=== PATIENT | male | born 1960 | race Caucasian/White ===

== ENCOUNTER → 2016-03-04 | Outpatient (REF) ==
--- NOTE | 2016-03-04 11:56 | REP ---
Clinical: Pain and disability. Technique: AP, lateral, open mouth views. Findings: Moderate to advanced degenerative disc osteophyte complex noted at the C5-6 and C6-7 levels. Alignment and lordosis maintained. No acute fracture / compression injury or subluxation. Impression: Focal degenerative disc osteophyte complex at the C5-6 and C6-7 levels. Signed by Pollo Murillo MD 03/04/2016 11:48 A
== END | disposition home or self-care (01) ==
LOC: M SMT 11:28
PROVIDERS: ATTEND Internal Medicine
DX: Z02.71 Encounter for disability determination (principal)

== ENCOUNTER → 2016-04-21 | Outpatient (CLI) | payer MEDICARE ==
--- NOTE | 2016-04-22 08:50 | REP ---
MRI CERVICAL SPINE WITHOUT CONTRAST: HISTORY: Headaches. COMPARISON: 10/11/2010. A small central disc protrusion is present at the C3-4 level. There is mild effacement of the thecal sac without spinal cord compression. The C3 neural foramina are patent. A disc bulge is present at the C4-5 level. There is minimal effacement of the thecal sac without spinal cord compression. The C4 neural foramina are patent. A disc bulge with associated osteophyte formation is present at the C5-6 level. There is moderate effacement of the thecal sac without spinal cord compression. Bilateral uncinate process hypertrophy is present. This produces minimal and mild narrowing of the right and left C5 neural foramina respectively. A disc bulge with associated osteophyte formation is present at the C6-7 level. There is moderate effacement of the thecal sac without spinal cord compression. Bilateral uncinate process hypertrophy is present. This produces minimal and mild narrowing of the right and left C6 neural foramina respectively. There is no other disc bulge or herniation. The remaining neural foramina are patent. The spinal cord is normal in signal intensity. There is no intradural extramedullary lesion. The C5-6 and C6-7 intervertebral discs are decreased in height consistent with disc degeneration. Normal signal intensity is present in the cervical vertebral bodies. IMPRESSION: There is cervical spondylosis at the C3-4 through C6-7 levels without spinal cord compression. The disc bulge at the C4-5 level and foraminal narrowing at the C5-6 level are new findings. Signed by Wan Yost MD 04/22/2016 09:00 A
== END ==
LOC: M RAD 16:55
PROVIDERS: ATTEND Family Medicine
DX: M47.812 Spondylosis without myelopathy or radiculopathy, cervical region (principal); M50.20 Other cervical disc displacement, unspecified cervical region

== ENCOUNTER 2017-10-27 09:54 | Emergency (ER) | payer MEDICARE ==
[2017-10-27 11:18] LABS: BASO % 0.6 % (0.0-1.0); EOS # 0.1 10^3/uL (0.0-0.50); EOS % 1.2 % (0.0-3.0); HEMATOCRIT 42.9 % (42.0-52.0); HEMOGLOBIN 15.8 g/dl (13.5-17.5); IMMATURE GRANULOCYTE % 0.2 % (0-3.0); LYMPH # 1.5 10^3/uL (1.5-4.5); LYMPH % 28.9 % (24.0-44.0); MEAN CORPUSCULAR HEMOGLOBIN 34.3 pg (27.0-33.0); MEAN CORPUSCULAR VOLUME 93.3 fl (80.0-96.0); MONO # 0.5 10^3/uL (0.0-0.8); MONO % 10.3 % (0.0-5.0); NEUTROPHILS % 58.8 % (36.0-66.0); PLATELET COUNT, AUTOMATED 242 10^3/uL (150-450); RED CELL DISTRIBUTION WIDTH 11.4 % (11.5-14.5); WHITE BLOOD COUNT 5.2 10^3/uL (4.0-10.0)
[2017-10-27 11:20] LABS: MEAN CORPUSCULAR HGB CONC 36.8 g/dl (32.0-36.5)
[2017-10-27 11:35] LABS: INR 1.08; PROTHROMBIN TIME 14.1 SECONDS (12.1-14.4)
[2017-10-27 11:49] LABS: ANION GAP 7 MEQ/L (8-16); BLOOD UREA NITROGEN 21 MG/DL (7-18); CALCIUM LEVEL 9.2 MG/DL (8.5-10.1); CARBON DIOXIDE LEVEL 30 MEQ/L (21-32); CHLORIDE LEVEL 103 MEQ/L (98-107); CK-MB VALUE MASS < 1.0 NG/ML (<3.6); CPK CREATINE PHOSPHOKINASE 85 U/L (39-308); GLOMERULAR FILTRATION RATE > 60.0 (>56); GLUCOSE, FASTING 102 MG/DL (70-100); MB/CK RELATIVE INDEX 1.17 (< OR =4); SODIUM LEVEL 140 MEQ/L (136-145); TROPONIN I < 0.02 NG/ML (< 0.10)
[2017-10-27] MEDS: METOCLOPRAMIDE INJ 10MG/2ML VIAL (J2765) IV (12:45)
[2017-10-27 12:49] LABS: ALBUMIN 3.8 GM/DL (3.2-5.2); ALBUMIN/GLOBULIN RATIO 0.95 (1.00-1.93); ALKALINE PHOSPHATASE 59 U/L (45-117); ALT/SGPT 107 U/L (12-78); AST/SGOT 49 U/L (7-37); BILIRUBIN,DIRECT 0.2 MG/DL (0.0-0.2); BILIRUBIN,TOTAL 0.8 MG/DL (0.2-1.0); LIPASE 211 U/L (73-393); TOTAL PROTEIN 7.8 GM/DL (6.4-8.2)
== END 2017-10-27 14:48 | disposition home or self-care (01) ==
LOC: M ED 09:54
DX: R10.9 Unspecified abdominal pain (principal); R19.7 Diarrhea, unspecified; K21.9 Gastro-esophageal reflux disease without esophagitis; E78.5 Hyperlipidemia, unspecified; Z79.899 Other long term (current) drug therapy; Z88.0 Allergy status to penicillin
CPT/HCPCS: J2765

== ENCOUNTER → 2018-04-01 | Outpatient (CLI) | payer MEDICARE ==
[~2018-04-01] MED LIST: AMBI5TAB PO; BUPR1TAB53 PO; CIPR500T3 PO; CVS20TAB PO; HYDR25TAB PO; LOSA50TA88 PO; NAPR500T6 PO; REGL10TA6 PO; mega red PO
--- NOTE | 2018-04-02 10:03 | REP ---
MRI RIGHT SHOULDER WITHOUT CONTRAST: HISTORY: Right shoulder tear. The patient relates injuring the right shoulder approximately a week ago. No comparison imaging. TECHNIQUE: Axial, oblique coronal and oblique sagittal imaging planes utilized. T1- and T2-weighted scans were included with and without fat saturation. MRI FINDINGS: The right glenohumeral and acromioclavicular joints are normally aligned. There is osteoarthritic hypertrophy and subcortical cyst formation at the AC joint. There is mild to moderate inferior spurring along the acromion process. There is a moderate to large subacromial subdeltoid bursal effusion. No glenohumeral joint effusion is seen. There is advanced diffuse supraspinatus tendinosis with swelling and increased signal intensity on oblique coronal T1-weighted scans. There is focal T2 hyperintense signal at the distal insertion of the supraspinatus consistent with at least partial thickness supraspinatus tear. No retraction. The infraspinatus, biceps, and subscapularis tendons appear intact. There is no evidence of anterior or posterior labral tear. Superior labrum appears intact. There is however a subtle irregularity of the articular cartilage of the glenoid and humeral head consistent with chondromalacia. IMPRESSION: Advanced tendinosis in the supraspinatus tendon with evidence of at least partial thickness distal supraspinatus cuff tear at its attachment. Subacromial subdeltoid bursal effusion, AC joint osteoarthritis, and acromion process spurring are also noted. Electronically Signed by Jimmy Lee MD 04/02/2018 03:32 P
== END ==
LOC: M RAD 17:11
PROVIDERS: ATTEND Family Medicine
DX: M75.101 Unspecified rotator cuff tear or rupture of right shoulder, not specified as traumatic (principal)

== ENCOUNTER → 2018-09-10 | Outpatient (CLI) | payer MEDICARE ==
[~2018-09-10] MED LIST changes: -CVS20TAB PO; +OMEP20TA9 PO
--- NOTE | 2018-09-10 12:10 | REP ---
ULTRASOUND RIGHT NECK SOFT TISSUES: Real-time sonographic evaluation of the right neck soft tissues performed in the region of a reported palpable lump. At that location there appears to be a nonenlarged lymph node with normal morphologic characteristics demonstrating and echogenic fatty hilum. It measures 11 x 3 x 7 mm. No other cystic or solid nodule is seen. IMPRESSION: No significant sonographic abnormality at the site of the reported palpable abnormality. A nonenlarged lymph node is seen at that location. Electronically Signed by Guy Dangelo MD 09/12/2018 07:23 P
== END ==
LOC: M RAD 10:32
PROVIDERS: ATTEND Otolaryngology
DX: R22.1 Localized swelling, mass and lump, neck (principal)

== ENCOUNTER → 2018-09-17 | Outpatient (CLI) | payer MEDICARE ==
--- NOTE | 2018-09-22 09:06 | SLEEPCENT ---
DATE OF PROCEDURE: 09/17/2018 ORDERED BY: Betsy Waters NP Nocturnal polysomnography was performed for evaluation of sleep physiology in this patient with a history of excessive somnolence and disruptive sleep who has comorbidities of hypertension and acid reflux disease. 7 hours and 55 minutes of data were reviewed. There were 406 minutes of sleep identified. Sleep latency was normal at 15 minutes. Rapid eye movement (REM) latency was normal at 72 minutes. Sleep architecture was well-preserved with 5 REM cycles. Overall sleep efficiency 87%. The electrocardiogram showed sinus rhythm with an average heart rate of 70 beats per minute. Electroencephalogram (EEG) showed fairly normal waveforms for awake and sleep. Some artifacts noted. There were 171 respiratory events identified of 10 seconds in duration or greater for an apnea-hypopnea index of 25.2. The events were primarily obstructive, not exclusive to sleep stage, more frequent but not exclusive to the supine posture. Arousals from respiratory events were seen 5.3 times per hour and oxygen desaturations were seen into the 80s. Minimal limb activity and remaining measures of sleep physiology were normal. IMPRESSION: Obstructive sleep apnea syndrome (G47.33). Apnea-hypopnea index 25.2. RECOMMENDATIONS: The patient should be encouraged to return to the sleep disorder center for pressure therapy. In the interim, alcohol and sedative avoidance should be practiced and caution exercised during operation of motor vehicles.
== END ==
LOC: M SLEEP 19:22
PROVIDERS: ATTEND Nurse Practitioner Adult Health
DX: G47.33 Obstructive sleep apnea (adult) (pediatric) (principal)

== ENCOUNTER → 2018-11-16 | Outpatient (CLI) | payer MEDICARE ==
--- NOTE | 2018-11-18 19:38 | SLEEPCENT ---
DATE OF PROCEDURE: 11/16/2018 ORDERED BY: Betsy Waters Nocturnal polysomnography was performed for the titration of pressure therapy in this patient with obstructive sleep apnea syndrome. Apnea-hypopnea index 25.2. For testing a ResMed AirFit nasal mask of medium size was used, 4 cm of water pressure were applied to the circuit and the lights were extinguished. 7 hours and 17 minutes of data were reviewed. There were 258 minutes of sleep identified. Sleep latency was prolonged at 43 minutes. Rapid eye movement (REM) latency was prolonged at 159 minutes. Sleep architecture was fair with three REM cycles. There was a period of wake between 3:00 and 4:15 resulting in reduced sleep efficiency of 60.4%. The electrocardiogram showed a sinus rhythm with an average heart rate of 58 beats per minute. EEG showed reasonably normal waveforms for awake and sleep stages. Respiratory events were fully palliated with continuous positive airway pressure (CPAP) at a pressure of +4. Remaining measures of sleep physiology were normal. IMPRESSION: Obstructive sleep apnea syndrome (G47.33). RECOMMENDATIONS: Nightly use of pressure therapy 4 cm of water.
== END ==
LOC: M SLEEP 19:06
PROVIDERS: ATTEND Nurse Practitioner Adult Health
DX: G47.33 Obstructive sleep apnea (adult) (pediatric) (principal)

== ENCOUNTER 2019-02-21 17:48 | Emergency (ER) | payer MEDICARE ==
[~2019-02-21] VITALS: Ht 167.6 cm; Wt 88.2 kg
[2019-02-21 18:20] LABS: BASO % 0.5 % (0.0-1.0); EOS # 0.1 10^3/uL (0.0-0.5); EOS % 1.1 % (0.0-3.0); HEMATOCRIT 46.8 % (42.0-52.0); HEMOGLOBIN 16.2 g/dl (13.5-17.5); LYMPH # 1.7 10^3/uL (1.5-5.0); LYMPH % 30.3 % (24.0-44.0); MEAN CORPUSCULAR HEMOGLOBIN 33.2 pg (27.0-33.0); MEAN CORPUSCULAR HGB CONC 34.6 g/dl (32.0-36.5); MEAN CORPUSCULAR VOLUME 95.9 fl (80.0-96.0); MONO # 0.5 10^3/uL (0.0-0.8); MONO % 8.6 % (0.0-5.0); NEUTROPHILS # 3.2 10^3/uL (1.5-8.5); PLATELET COUNT, AUTOMATED 190 10^3/uL (150-450); RED BLOOD COUNT 4.88 10^6/uL (4.30-6.10); WHITE BLOOD COUNT 5.5 10^3/uL (4.0-10.0)
[2019-02-21] MEDS ORDERED: hydroCHLOROthiazide 12.5 MG CAPSULE PO ONE (18:30)
[2019-02-21] MEDS ORDERED: LOSARTAN 50 MG TAB PO ONE (18:30)
[2019-02-21] MEDS ORDERED: ASPIRIN 81 MG CHEW TABLET PO ONE (18:30)
--- NOTE | 2019-02-21 18:43 | REP ---
Clinical: Chest pain . Comparison: 10/27/2017 . Findings: The mediastinum and cardiac silhouette are stable and within normal limits for portable technique. The lung mitchell are clear without acute consolidation, effusion, or pneumothorax. Skeletal structures are intact. Impression: No acute cardiopulmonary process appreciated. Electronically Signed by Pollo Murillo MD 02/21/2019 06:35 P
[2019-02-21 18:46] LABS: BLOOD UREA NITROGEN 18 MG/DL (7-18); CALCIUM LEVEL 9.5 MG/DL (8.5-10.1); CARBON DIOXIDE LEVEL 27 MEQ/L (21-32); CHLORIDE LEVEL 102 MEQ/L (98-107); CK-MB VALUE MASS < 1.0 NG/ML (<3.6); CPK CREATINE PHOSPHOKINASE 79 U/L (39-308); CREATININE FOR GFR 1.15 MG/DL (0.70-1.30); GLOMERULAR FILTRATION RATE > 60.0 (>56); GLUCOSE, FASTING 148 MG/DL (70-100); MB/CK RELATIVE INDEX 1.27 (< OR =4); POTASSIUM SERUM 3.4 MEQ/L (3.5-5.1); SODIUM LEVEL 138 MEQ/L (136-145); TROPONIN I < 0.02 NG/ML (< 0.10)
[2019-02-21] MEDS ORDERED: ISOVUE-370 76% 100ML VIAL (Q9967) As Ordered ONE (18:59)
--- NOTE | 2019-02-21 19:28 | ECGEPIP ---
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
[2019-02-21 19:30] LABS: ALBUMIN 4.2 GM/DL (3.2-5.2); ALT/SGPT 52 U/L (12-78); BILIRUBIN,DIRECT 0.2 MG/DL (0.0-0.2); BILIRUBIN,TOTAL 0.7 MG/DL (0.2-1.0); LIPASE 213 U/L (73-393); NT-PRO BNP < 5 PG/ML (<125); TOTAL PROTEIN 8.1 GM/DL (6.4-8.2)
--- NOTE | 2019-02-21 19:30 | ECGEPIP ---
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
[2019-02-21 20:23] LABS: INR 1.07; PROTHROMBIN TIME 13.6 SECONDS (11.8-14.0)
[2019-02-21 20:24] LABS: PARTIAL THROMBOPLASTIN TIME 27.5 SECONDS (25.0-38.4)
--- NOTE | 2019-02-21 20:35 | REPVR ---
PROCEDURE INFORMATION: Exam: CT Angiography Chest With Contrast Exam date and time: 02/21/2019 7:53 PM Age: 58 years old Clinical indication: Chest pain; Additional info: Cp, llq pain TECHNIQUE: Imaging protocol: Computed tomographic angiography of the chest with intravenous contrast. 3D rendering: MIP and/or 3D reconstructed images were created by the technologist. Radiation optimization: All CT scans at this facility use at least one of these dose optimization techniques: automated exposure control; mA and/or kV adjustment per patient size (includes targeted exams where dose is matched to clinical indication); or iterative reconstruction. Contrast material: ISOVUE 370; Contrast volume: 100 ml; Contrast route: IV; COMPARISON: CR PORTABLE CHEST X-RAY 02/21/2019 6:27 PM FINDINGS: Pulmonary arteries: There are no pulmonary emboli. Aorta: There is no aortic dissection or aneurysm. Lungs: Bibasilar atelectasis. 4 mm noncalcified nodule left lung base likely postinflammatory. Findings stable in comparison to lung windows from a prior abdominal CT of 10/27/2017. No follow-up suggested. Pleural space: Unremarkable. No pneumothorax. No pleural effusion. Heart: Unremarkable. No cardiomegaly. No pericardial effusion. Lymph nodes: Unremarkable. No enlarged lymph nodes. Bones/joints: Unremarkable. No acute fracture. Soft tissues: Unremarkable. IMPRESSION: 1. There is no aortic dissection or aneurysm. 2. There are no pulmonary emboli. 3. No acute pulmonary parenchymal abnormalities. Electronically signed by: Esvin Paul On 02/21/2019 20:30:11 PM
--- NOTE | 2019-02-21 20:39 | REPVR ---
PROCEDURE INFORMATION: Exam: CT Abdomen And Pelvis With Contrast Exam date and time: 02/21/2019 7:53 PM Age: 58 years old Clinical indication: Abdominal pain; Additional info: Cp, llq pain TECHNIQUE: Imaging protocol: Computed tomography of the abdomen and pelvis with intravenous contrast. Radiation optimization: All CT scans at this facility use at least one of these dose optimization techniques: automated exposure control; mA and/or kV adjustment per patient size (includes targeted exams where dose is matched to clinical indication); or iterative reconstruction. Contrast material: ISOVUE 370; Contrast volume: 100 ml; Contrast route: IV; COMPARISON: CT ABD PELVIS W/O CONTRAST 10/27/2017 12:33 PM FINDINGS: Liver: There is a diffuse decrease in hepatic parenchymal density, consistent with fatty infiltration. Small indeterminate hepatic lucencies measure less than 1 cm, stable in comparison to prior study of 10/27/2017. Findings are likely benign representing hepatic cysts and/or biliary hamartomas. Gallbladder and bile ducts: Normal. No calcified stones. No ductal dilation. Pancreas: Normal. No ductal dilation. Spleen: Normal. No splenomegaly. Adrenals: Normal. No mass. Kidneys and ureters: Normal. No hydronephrosis. Stomach and bowel: Diffuse thickening of the rectal wall stable in comparison to the prior study. Correlation with sigmoidoscopy suggested to exclude neoplasm. Appendix: No evidence of appendicitis. Intraperitoneal space: Unremarkable. No free air. No significant fluid collection. Vasculature: Unremarkable. No abdominal aortic aneurysm. Lymph nodes: Unremarkable. No enlarged lymph nodes. Bladder: Mild thickening of the bladder wall likely related to changes of chronic bladder outlet obstruction although no trabeculation or diverticuli demonstrated. No perivesicular inflammation to suggest cystitis demonstrated. Reproductive: The prostate gland demonstrates mild hyperplasia. Bones/joints: Mild central spinal stenosis at L3-L4 and [id number] central spinal stenosis at L4-L5. Posterior annular bulging L5-S1 without evidence of stenosis. Soft tissues: Bilateral inguinal hernias. No incarceration. IMPRESSION: 1. There is a diffuse decrease in hepatic parenchymal density, consistent with fatty infiltration. 2. Mild prostatic hyperplasia. 3. Diffuse thickening of the rectal wall stable in comparison to the prior study. Correlation with sigmoidoscopy suggested to exclude neoplasm. 4. Mild thickening of the bladder wall likely related to changes of chronic bladder outlet obstruction although no trabeculation or diverticuli demonstrated. No perivesicular inflammation to suggest cystitis demonstrated. Electronically signed by: Esvin Paul On 02/21/2019 20:39:08 PM
[2019-02-21 23:30] VITALS: BP 143/98
[2019-02-21 23:31] LABS: CK-MB VALUE MASS < 1.0 NG/ML (<3.6); CPK CREATINE PHOSPHOKINASE 72 U/L (39-308); MB/CK RELATIVE INDEX 1.39 (< OR =4); TROPONIN I < 0.02 NG/ML (< 0.10)
--- NOTE | 2019-02-27 16:46 | ED PDOC ---
Post-Departure Follow-Up dr erickson faxed formal report of ct abd/p for fu Karina Zhu MD Feb 27, 2019 16:46
== END 2019-02-22 00:05 | disposition home or self-care (01) ==
LOC: M ED 17:48
DX: R07.89 Other chest pain (principal); R06.02 Shortness of breath; I10 Essential (primary) hypertension; Z79.899 Other long term (current) drug therapy; Z88.0 Allergy status to penicillin
CPT/HCPCS: 36415; 71045; 71275; 74177; 80048; 80076; 81001; 82550; 82553; 83690; 83880; 84439; 84443; 84484; 85025; 85610; 85730; 93005; 93041; 94760; 99285; Q9967

== ENCOUNTER → 2019-03-16 | Outpatient (CLI) | payer MEDICARE, SELFPAY ==
--- NOTE | 2019-03-17 08:17 | REP ---
Focused left breast sonography: History: Unspecified lump in the left breast. Upper inner quadrant. Palpable lump 1 inch above the nipple at 12 o'clock. Findings: The left breast is scanned from 10 o'clock to 2 o'clock in the area the patient's pain. He states he cannot feel a lump at this time. There was a palpable lump previously from proximal 11 to 1 o'clock position. The patient reports pain in this region. No history of trauma. In the area of the patient's reported pain, there is very subtly hyperechoic subcutaneous fat containing two or three tiny cystic areas. These cystic areas measure 2-3 mm. No sonographically suspicious finding. Findings may where represents locally inflamed fat, perhaps contusion. No mass lesion is seen. No significant cyst is observed. Impression: BIRADS category 2 benign findings. A subcutaneous contusion versus cellulitis versus minimal gynecomastia. Clinical followup is advised. If symptoms persist, mammography could be considered. Electronically Signed by Jimmy Lee MD 03/17/2019 11:17 A
== END ==
LOC: M RAD 11:36
PROVIDERS: ATTEND Nurse Practitioner
DX: N63.22 Unspecified lump in the left breast, upper inner quadrant (principal)

== ENCOUNTER 2019-03-31 09:36 | Day surgery (SDC) | payer MEDICARE ==
[~2019-03-31] VITALS: Ht 165.1 cm; Wt 84.4 kg
[~2019-03-31 09:36] MED LIST changes: +CHLO125TA PO; +MULT-40 PO; +NS 1,000 ML IV ONE
[2019-03-31] MEDS ORDERED: LIDOCAINE 2% INJ 100 MG/5 ML SDV (FOR ANES.) As Ordered ONE (10:58)
[2019-03-31] MEDS ORDERED: propofoL 200 MG/20 ML VIAL As Ordered ONE (11:00)
--- NOTE | 2019-03-31 11:47 | ROOR ---
Patient Name: Pollo Salgado Procedure Date: 03/31/2019 11:27 AM Date of : 1960 Age: 58 Room: [facility] Gender: Male Note Status: Finalized Procedure: Colonoscopy Indications: Abnormal CT of the GI tract Providers: Ruben Gimenez Jr, MD Referring MD: Vic Mckeon MD Requesting Provider: Medicines: Propofol per Anesthesia Complications: No immediate complications. Procedure: Pre-Anesthesia Assessment: - Prior to the procedure, a History and Physical was performed, and patient medications and allergies were reviewed. The patient is competent. The risks and benefits of the procedure and the sedation options and risks were discussed with the patient. All questions were answered and informed consent was obtained. Patient identification and proposed procedure were verified by the physician and the nurse in the pre-procedure area and in the procedure room. Mental Status Examination: alert and oriented. Airway Examination: normal oropharyngeal airway and neck mobility. Respiratory Examination: clear to auscultation. CV Examination: normal. ASA Grade Assessment: II - A patient with mild systemic disease. After reviewing the risks and benefits, the patient was deemed in satisfactory condition to undergo the procedure. The anesthesia plan was to use moderate sedation / analgesia (conscious sedation). Immediately prior to administration of medications, the patient was re-assessed for adequacy to receive sedatives. The heart rate, respiratory rate, oxygen saturations, blood pressure, adequacy of pulmonary ventilation, and response to care were monitored throughout the procedure. The physical status of the patient was re-assessed after the procedure. The Colonoscope was introduced through the anus and advanced to the cecum, identified by appendiceal orifice and ileocecal valve. The colonoscopy was performed without difficulty. The patient tolerated the procedure well. The quality of the bowel preparation was adequate. Findings: A small polyp was found in the sigmoid colon. The polyp was removed with a cold snare. Resection and retrieval were complete. The rectum, recto-sigmoid colon, descending colon, transverse colon, ascending colon, cecum, appendiceal orifice and ileocecal valve appeared normal. A few small and large-mouthed diverticula were found in the sigmoid colon. Impression: - One small polyp in the sigmoid colon, removed with a cold snare. Resected and retrieved. - The rectum, recto-sigmoid colon, descending colon, transverse colon, ascending colon, cecum, appendiceal orifice and ileocecal valve are normal. - Diverticulosis in the sigmoid colon. Recommendation: - Discharge patient to home (ambulatory). - Repeat colonoscopy in 5 years for surveillance. Ruben Gimenez MD Ruben Gimenez Jr, MD 03/31/2019 11:47:08 AM Electronically signed by Ruben Gimenez Jr, MD Number of Addenda: 0 Note Initiated On: 03/31/2019 11:27 AM Estimated Blood Loss: Estimated blood loss: none.
[2019-03-31 12:15] VITALS: BP 165/96
== END 2019-03-31 12:40 | disposition home or self-care (01) ==
LOC: M OPP 09:36
PROVIDERS: ATTEND Surgery
DX: D12.5 Benign neoplasm of sigmoid colon (principal); K57.30 Diverticulosis of large intestine without perforation or abscess without bleeding; R19.4 Change in bowel habit; Z86.010 Personal history of colon polyps; G47.30 Sleep apnea, unspecified; Z79.899 Other long term (current) drug therapy; Z88.0 Allergy status to penicillin

== ENCOUNTER → 2020-06-11 | Outpatient (CLI) | payer MEDICARE ==
[~2020-06-11] MED LIST changes: +HYDR-3490 PO; -HYDR25TAB PO; -NS 1,000 ML IV ONE
--- NOTE | 2020-06-11 12:25 | REP ---
INDICATION: PAIN COMPARISON: None. TECHNIQUE: AP, lateral, bilateral oblique views. FINDINGS: Acute transverse fracture through the medial malleolus with overlying soft tissue swelling. Underlying age-related degenerative changes noted throughout the ankle. IMPRESSION: Acute nondisplaced transverse fracture through the medial malleolus with soft tissue swelling. <Electronically signed by Pollo Mruillo > 06/11/20 [id number]
== END ==
LOC: M WUC 12:08
PROVIDERS: ATTEND Physician Assistant
DX: M25.572 Pain in left ankle and joints of left foot (principal)

== ENCOUNTER → 2020-06-25 | Outpatient (REF) | payer MEDICARE ==
[~2020-06-25] MED LIST changes: +OMEP20TA2 PO; -OMEP20TA9 PO
== END ==
LOC: M SMT 17:06
PROVIDERS: ATTEND Nurse Practitioner Family
DX: R97.20 Elevated prostate specific antigen [PSA] (principal); R39.9 Unspecified symptoms and signs involving the genitourinary system
CPT/HCPCS: 87086; G0463

== ENCOUNTER → 2020-08-07 | Outpatient (CLI) | payer MEDICARE ==
--- NOTE | 2020-08-07 12:08 | REPPI ---
INDICATION: elevated PSA. COMPARISON: None. TECHNIQUE: Transrectal prostate ultrasound performed, with ultrasound guidance provided for Dr. Parker who performed ultrasound-guided biopsy. FINDINGS: Prostate measures 4.4 x 2.3 x 4.0 cm, total volume 20.3 mL. Echotexture is heterogeneous with scattered tiny cysts and calcifications. No focal mass is seen. Seminal vesicles are symmetrical. IMPRESSION: Prostate ultrasound as above, ultrasound guidance was provided for Dr. Parker who performed ultrasound-guided biopsy of the prostate. <Electronically signed by Guy Dangelo > 08/07/20 1975
== END ==
LOC: M SMT PRO 08:17
PROVIDERS: ATTEND Urology
DX: C61 Malignant neoplasm of prostate (principal)
CPT/HCPCS: 55700; 76872; 76942; G0416

== ENCOUNTER → 2022-08-12 | Outpatient (CLI) | payer MEDICARE ==
[~2022-08-12] MED LIST changes: +LOSA50TA28 PO; -LOSA50TA88 PO
== END ==
LOC: M RAD 07:11
PROVIDERS: ATTEND Internal Medicine Gastroenterology
DX: R94.5 Abnormal results of liver function studies (principal)

== ENCOUNTER 2022-12-08 10:53 | Day surgery (SDC) | payer MEDICARE ==
[~2022-12-08] VITALS: Ht 167.6 cm; Wt 89.6 kg
[~2022-12-08 10:53] MED LIST changes: +FLOM0.4C39 PO; +FLUO20CA22 PO; +NS 1,000 ML IV ONE; +VALS1TAB66 PO
[2022-12-08 12:50] VITALS: TEMP 97.6
[2022-12-08] MEDS ORDERED: propofoL 200 MG/20 ML VIAL As Ordered ONE (12:50)
[2022-12-08 13:28] VITALS: BP 138/82; O2SAT 95
== END 2022-12-08 13:30 | disposition home or self-care (01) ==
LOC: M OPP 10:53
PROVIDERS: ATTEND Internal Medicine Gastroenterology
DX: K31.A11 Gastric intestinal metaplasia without dysplasia, involving the antrum (principal); K31.89 Other diseases of stomach and duodenum; K22.89 Other specified disease of esophagus; K44.9 Diaphragmatic hernia without obstruction or gangrene; K29.70 Gastritis, unspecified, without bleeding; K76.6 Portal hypertension; Z79.83 Long term (current) use of bisphosphonates; Z79.899 Other long term (current) drug therapy; Z88.0 Allergy status to penicillin; G47.30 Sleep apnea, unspecified; Z99.89 Dependence on other enabling machines and devices

== ENCOUNTER → 2022-12-23 | Outpatient (CLI) | payer MEDICARE ==
[~2022-12-23] MED LIST changes: -NS 1,000 ML IV ONE
[2022-12-23 17:19] LABS: HEMATOCRIT 43.7 % (42.0-52.0); HEMOGLOBIN 15.1 g/dl (13.5-17.5); MEAN CORPUSCULAR HEMOGLOBIN 32.8 pg (27.0-33.0); MEAN CORPUSCULAR HGB CONC 34.6 g/dl (32.0-36.5); PLATELET COUNT, AUTOMATED 176 10^3/uL (150-450); WHITE BLOOD COUNT 4.2 10^3/uL (4.0-10.0)
[2022-12-23 17:47] LABS: FERRITIN 36.6 NG/ML (10.5-307.3)
== END ==
LOC: M PLALAB 16:17
PROVIDERS: ATTEND Internal Medicine Hematology
DX: E83.110 Hereditary hemochromatosis (principal)

== ENCOUNTER → 2023-11-24 | Outpatient (CLI) | payer MEDICARE ==
[~2023-11-24] MED LIST changes: +FLUO-365 PO; -FLUO20CA22 PO; +NAPR-1405 PO; -NAPR500T6 PO
== END ==
LOC: M SLEEP 20:00
PROVIDERS: ATTEND Nurse Practitioner Adult Health
DX: G47.33 Obstructive sleep apnea (adult) (pediatric) (principal)

== ENCOUNTER 2023-12-12 20:21 | Emergency (ER) | payer MEDICARE ==
[~2023-12-12] VITALS: Ht 167.6 cm; Wt 96.2 kg
[2023-12-12 20:32] VITALS: BP 100/59; TEMP 96.7; O2SAT 94
== END 2023-12-12 20:41 | disposition left against medical advice (07) ==
LOC: EDBD 20:21 → M ED 20:21
DX: Z04.89 Encounter for examination and observation for other specified reasons (principal); K21.9 Gastro-esophageal reflux disease without esophagitis; F32.A Depression, unspecified; Z88.0 Allergy status to penicillin; Z79.899 Other long term (current) drug therapy; Z53.9 Procedure and treatment not carried out, unspecified reason

== ENCOUNTER → 2024-09-21 | Outpatient (CLI) | payer MEDICARE ==
[~2024-09-21] MED LIST changes: -AMBI5TAB PO; +BUPR150T15 PO; -BUPR1TAB53 PO; -FLOM0.4C39 PO; +OMEP-611 PO; -OMEP20TA2 PO; +TAMS-18 PO; +ZOLP-532 PO
== END ==
LOC: M PLAIMG 08:13
PROVIDERS: ATTEND Family Medicine
DX: M50.10 Cervical disc disorder with radiculopathy, unspecified cervical region (principal)

== ENCOUNTER 2024-11-08 08:59 | Day surgery (SDC) | payer MEDICARE ==
[~2024-11-08] VITALS: Ht 167.6 cm; Wt 92.1 kg
[~2024-11-08 08:59] MED LIST changes: +NIFE1TAB52 PO; +VENL75CA47 PO; +[UNRECOGNIZED DRUG - CODE] PO
[2024-11-08 11:05] VITALS: O2SAT 98
[2024-11-08 11:11] VITALS: BP 162/96
== END 2024-11-08 11:13 | disposition home or self-care (01) ==
LOC: M OPP 08:59
PROVIDERS: ATTEND Surgery
DX: D12.6 Benign neoplasm of colon, unspecified (principal); K57.30 Diverticulosis of large intestine without perforation or abscess without bleeding; K64.2 Third degree hemorrhoids; Z86.0100 Personal history of colon polyps, unspecified; G47.30 Sleep apnea, unspecified; Z88.0 Allergy status to penicillin; Z79.899 Other long term (current) drug therapy; Z86.73 Personal history of transient ischemic attack (TIA), and cerebral infarction without residual deficits